=== PATIENT | male | born 1960 | race Caucasian/White ===

== ENCOUNTER → 2019-02-23 07:26 | Outpatient (CLI) | payer OTHER, SELFPAY ==
[2018-09-13 14:50] VITALS: BMI 24.9
[2019-02-23 08:26] LABS: AST(SGOT) 18 U/L (15-37); Alanine Aminotransfer ALT/SGPT 30 U/L (16-61); Albumin, Serum 3.6 g/dL (3.2-5.0); Alkaline Phosphatase 55 U/L (45-117); Bilirubin, Direct 0.17 mg/dL (0.00-0.30); Cholesterol 215 mg/dL (200); Globulin 3.5 g/dL (2.2-4.2); High Density Lipoprotein 66 mg/dL; PSA,Total - Annual Screen 0.85 ng/mL (0.00-4.00); Protein, Total 7.1 g/dL (6.4-8.2); Triglycerides 65 mg/dL; Very Low Density Lipoprotein 13 mg/dL (5-40)
== END ==
PROVIDERS: Internal Medicine Cardiovascular Disease; Family Provider Family Medicine; PCP Family Medicine; Referring Provider Family Medicine; Visit Provider Family Medicine
DX: Z12.5 Encounter for screening for malignant neoplasm of prostate (principal)
CPT/HCPCS: 36415; 80061; 80076; 84153; G0103

== ENCOUNTER → 2019-06-05 15:01 | Outpatient (CLI) | payer OTHER, SELFPAY ==
[2018-09-13 14:50] VITALS: BMI 24.9
--- NOTE | 2019-06-05 15:03 | ECHOD_ITS ---
Reason For Study: BICUSPID AORTIC VALVE Procedure This was a 2D Doppler, Color Flow transthoracic echocardiogram. The study was technically difficult. Exam performed in department. Left Ventricle Normal LV size. Mild concentric left ventricular hypertrophy. Left ventricular systolic function is normal. The estimated ejection fraction is 65 %. Post operative septal motion. No evidence for diastolic dysfunction. No regional wall motion abnormalities noted. Right Ventricle Normal RV size. Normal systolic function. Atria The left atrium is mildly enlarged. Normal right atrium. No doppler evidence for ASD. Mitral Valve There is no mitral annular calcification. Normal mitral valve. Trivial mitral valve insufficiency. Tricuspid Valve Normal tricuspid valve. Mild tricuspid valve insufficiency. Right ventricular systolic pressure estimated to be 31 mmHg. Aortic Valve Bicuspid aortic valve. Severe focal aortic valve calcification. Mild aortic stenosis. Mild-Moderate (1-2+) aortic valve insufficiency. Pulmonic Valve The pulmonic valve is not well visualized. Mild (1+) eccentric pulmonic valve insufficiency. Great Vessels Moderately dilated aortic root (at the level of the Sinus of Valsalva - approximately 4.8 cm). Pericardium/Pleural No pericardial effusion. MMode/2D Measurements & Calculations LVIDd: 5.7 cm IVSd: 1.4 cm LVOT diam: 3.0 cm LVIDs: 4.2 cm LVPWd: 1.4 cm LVOT area: 7.3 cm2 RVDd: 5.1 cm FS: 26.5 % LAV(MOD-bp): 55.9 ml Aortic Valve Planimetry: 2.3 cm2 LA A4 area: 19.2 cm2 LAV(MOD-bp) Indexed: 29.8 ml/m2 LAV(MOD-sp2): 57.6 ml LAV(MOD-sp4): 54.3 ml LA dimension(2D): 4.2 cm RA A4 area: 18.9 cm2 Time Measurements MV dec time: 0.23 sec Doppler Measurements & Calculations MV E max joseph: 52.5 cm/sec Lat Peak E' Joseph: 9.0 cm/sec Med Peak E' Joseph: 5.0 cm/sec MV A max joseph: 38.2 cm/sec E/E' lat: 5.9 E/E' med: 10.4 MV E/A: 1.4 Ao V2 max: 313.0 cm/sec LV V1 max: 84.8 cm/sec SV(LVOT): 160.2 ml Ao max P.4 mmHg LV V1 max P.9 mmHg Ao V2 mean: 222.4 cm/sec LV V1 mean P.7 mmHg Ao mean P.8 mmHg LV V1 mean: 61.4 cm/sec Ao V2 VTI: 70.7 cm LV V1 VTI: 22.0 cm JAMARI(I,D): 2.3 cm2 JAMARI(V,D): 2.0 cm2 PA V2 max: 88.4 cm/sec TR max joseph: 265.5 cm/sec TR max P.3 mmHg Interpretation Summary The study was technically difficult. Left ventricular systolic function is normal. The estimated ejection fraction is 65 %. Post operative septal motion. Mild concentric left ventricular hypertrophy. The left atrium is mildly enlarged. Trivial mitral valve insufficiency. Mild tricuspid valve insufficiency. Bicuspid aortic valve. Severe focal aortic valve calcification. Mild aortic stenosis. Mild-Moderate (1-2+) aortic valve insufficiency. Mild (1+) eccentric pulmonic valve insufficiency. Moderately dilated aortic root (at the level of the Sinus of Valsalva - approximately 4.8 cm). Right ventricular systolic pressure estimated to be 31 mmHg. No evidence for diastolic dysfunction. Ordering Physician: Gustavo Da Silva Referring Physician: Gregor Boykin Performed By: Carmen Calvo, RDCASH, RVT
== END ==
PROVIDERS: Family Provider Family Medicine; PCP Family Medicine; Referring Provider Internal Medicine Cardiovascular Disease; Visit Provider Internal Medicine Cardiovascular Disease
DX: Z95.828 Presence of other vascular implants and grafts (principal); Q23.1 Congenital insufficiency of aortic valve
CPT/HCPCS: 93306

== ENCOUNTER 2020-07-25 18:14 | Emergency (ER) | payer OTHER, SELFPAY ==
[2019-09-14 14:45] VITALS: BMI 24.3
[2020-07-25 18:15] VITALS: BP 145/100; PULSE 82; RESP 16; TEMP 35.9; O2SAT 98; BMI 25.8
[2020-07-25] MEDS: Glucagon 1 MG/ML Syringe IV (18:48)
[2020-07-25 18:59] VITALS: BP 98/59; PULSE 69; RESP 16; O2SAT 95
--- NOTE | 2020-07-25 19:16 | ED.RN ---
Pt sts he feels like the oill might have moved. Pt given a glass of water, able to drink cup without difficulty. Dr. Hernandez notified.
--- NOTE | 2020-07-25 19:17 | ED.DCSUM_ITS ---
- ER Visit Summary Date of Service: 07/25/20 Chief Complaint: Esophageal food impaction History of Present Illness: The patient is a 59 M who presents with esophageal food impaction that occurred today. Patient states he ate breakfast this morning which consisted of cereal. Patient states he had no problems with that. Patient states that later he took his pills. Patient states it feels like they got stuck in his esophagus. Patient states that he is having difficulty swallowing his saliva as well as any other liquids. Patient states he has been having some vomiting after he attempts to swallow liquids. Patient describes some aching in his chest whenever he drinks. Patient denies any shortness of breath. Patient denies any cough. Physical Examination: Vital signs are stable. Patient is afebrile. Patient is in no acute distress. Oral mucosa is pink and moist. Neck is supple. Trachea is midline. There is no JVD noted. Heart was regular rate and rhythm. Lungs are clear and equal bilaterally. Abdomen is soft. Bowel sounds are normal. There is no tenderness. There is no rebound or guarding noted. Skin is warm dry. Cranial nerves II through XII are intact. There are no focal motor or sensory deficits noted. Extremities are intact. There is no calf tenderness or edema. Emergency Department Course and Treatment: Patient was given a dose of IV glucagon. Initially, the patient states he had no improvement with this. However, a few minutes later he states he feels like something went down and he is now able to swallow water. Patient was instructed to start with a liquid diet and advance as tolerated. Patient was instructed to his food well. Patient was instructed to follow-up with his primary care physician in 3 to 5 days for further evaluation. Patient understood and was agreeable with the pl an. All questions were answered. Disposition: Discharge home Impression: Dysphagia This note was generated with [employer] dictation software. It may contain incorrect words, spelling, and punctuation that were not noted in review of the chart prior to signing ED Disposition - Plan for ED Patient: Disposition: Home or Assisted Living Diagnosis: Dysphagia Instructions: ED Esophageal Foreign Body, Resolved Referrals: Gregor Boykin MD [Primary Care Provider] - 3-5 Days
[2020-07-25 19:35] VITALS: BP 117/65; PULSE 67; RESP 16
== END 2020-07-25 19:35 | disposition home or self-care (01) ==
PROVIDERS: Emergency Provider Emergency Medicine; PCP Family Medicine
DX: R13.10 Dysphagia, unspecified (principal)
CPT/HCPCS: 96374; 99283; J1610

== ENCOUNTER 2020-11-06 05:57 | Day surgery (SDC) | payer OTHER, SELFPAY ==
[2020-09-26 12:44] VITALS: BMI 25.8
--- NOTE | 2020-10-31 08:55 | EKG12_ITS ---
Test Reason : PREOP Blood Pressure : / mmHG Vent. Rate : 053 BPM Atrial Rate : 053 BPM P-R Int : 160 ms QRS Dur : 100 ms QT Int : 422 ms P-R-T Axes : 034 -07 002 degrees QTc Int : 395 ms Sinus bradycardia Nonspecific ST abnormality Poor R wave progression Abnormal ECG Confirmed by SONIDO KRAMER, ERNESTINE ([id number]), market editor MICHEL JOHNSON ([id number]) on 11/04/2020 10:24:26 AM Referred By: VELVET Confirmed By:ERNESTINE HEAD MD
[2020-10-31 09:27] LABS: Hemoglobin 15.2 g/dL (13.0-16.5); Mean Corp Hgb Conc 32.3 g/dL (32-36); Mean Corpuscular Volume 92.9 fL (80-94); Mean Platelet Vol. 11.1 fl (6.2-12.0); Platelet Count 160 K/mm3 (150-450); RBC Distribution Width CV 12.4 % (11.6-14.6); RBC Distribution Width SD 42.6 fl (35.1-43.9); Red Blood Count 5.06 M/mm3 (4.6-6.2); White Blood Count 4.7 K/mm3 (4.4-11.0)
[2020-10-31 10:11] LABS: Anion Gap 3 (5-15); BUN 25 mg/dL (7-18); BUN/Creat Ratio 24.3 RATIO (10-20); Calcium,Total 9.3 mg/dL (8.5-10.1); Chloride 109 mmol/L (98-107); Creatinine, Serum 1.03 mg/dL (0.70-1.30); EST Glomerular Filtration Rate 78 mL/min (>60); Est Glom Filt Rate - Afr Amer 95 mL/min (>60); Glucose 106 mg/dL (74-106); Potassium 4.1 mmol/L (3.5-5.1); Sodium Level 141 mmol/L (136-145)
[2020-11-06] VITALS (10 sets, daily range): BP systolic 96–145; BP diastolic 45–77; PULSE 42–72; RESP 16–18; TEMP 36.1–37.1; O2SAT 94–100; BMI 24.7
--- NOTE | 2020-11-06 06:38 | PCM.HP.BLA ---
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 Tae Palomares MD) Cardiomyopathy Mixed hyperlipidemia Paroxysmal SVT (supraventricular tachycardia) Premature atrial contraction Premature ventricular contraction Surgical History History of aortic valve repair (~03/24/06) History of ascending aortic replacement (~03/24/06) History of cardiac radiofrequency ablation (~06/23/06) Family History Father Cancer Prostate Carotid artery stenosis Cardiac pacemaker in situ Mother Myocardial infarction Dementia Sister , age 50 Breast cancer Social History Smoking Status: Never smoker alcohol intake: current alcohol intake frequency: a few times a week Alcohol type: beer substance use type: does not use caffeine: Yes Type: coffee Number of servings: 2 HPI HPI HPI: KALEY GONZALEZ, is a 59 M who presents to the office today for HPI HPI Surgical H&P: Yes HPI: KALEY GONZALEZ, is a 59 M who presents to the office today for right groin bulging. The patient is noted he has had right groin bulging over the last few months. He is not having any pain in the opposite side. The patient also notes that he has an umbilical hernia. The patient is not having any radiation of pain or nausea or vomiting. ROS General General: No weight change or fatigue Cardio Cardiovascular: Yes murmur; No pacemaker, heart disease, atrial fibrillation, high blood pressure, heart attack, heart stent, palpitations, shortness of breat with exertion or chest pain Psych Psychiatric: No depression or anxiety Resp Respiratory: No shortness of breath, No sleep apnea, No cough, No COPD, No asthma, No emphysema and No wheezing Gastro Gastrointestinal: No abdominal pain, No nausea or vomiting, No diarrhea, No constipation, No blood in stool, No acid reflux, No hemorrhoids, No ulcers, No gallbladder problem and No black,tarry stools Additional Details: Bulging of the right groin Andres Hematologic: No blood thinners Exam Const General: cooperative Orientation: alert and oriented x3 Resp Effort & Inspection: normal respiratory effort Auscultation: clear to auscultation bilaterally Cardio Rate: regular rate Rhythm: regular rhythm Heart Sounds: murmur GI Inspection: non-distended Palpation: soft, hernia indirect inguinal on the right and umbilical and nontender Assessment and Plan Assessment and Plan (1) Right inguinal hernia: Status: Acute Plan - Dr. Tae Palomares MD: The patient has a right inguinal hernia which is reducible. There is bulging the right groin which is asymmetrical from the left. There is no pain or bulge in the left groin. The patient has an umbilical hernia as well. I discussed open versus laparoscopic repair of the right inguinal hernia with mesh. I discussed robotic assisted laparoscopic inguinal hernia repair with mesh. I discussed the risks including but not limited to bleeding, infection, injury to underlying organs, injury to spermatic cord, chronic groin pain. The patient understands the risks of the procedure and that mesh will be placed. The patient also agreed to proceed with contralateral inguinal hernia repair if it is present. At this time the patient does not want his umbilical hernia repaired Tae Palomares MD Pager: [facility] [address] [place] [address], [address] [place] [address] Office: I have seen and reexamined the patient and no changes
[2020-11-06] MEDS: Lactated Ringers 1,000 ML 100 ML IV ×2 (06:47→10:01)
[2020-11-06] MEDS: Cefazolin 2 GM in 0.9% Normal Saline 100 ML IV (07:24)
--- NOTE | 2020-11-06 07:30 | HERN_PTH ---
PATIENT: KALEY GONZALEZ LOC: [facility] [place] U#:[id number] AGE/SX: 59/M ROOM: RE11/06/[address]: Dr. Tae Palomares MD : 1960 BED: DIS: 11/06/2020 SPEC #: [id number] RECD: 11/06/20 11:50 STATUS: JOVITA REFarideh #: [id number] LOGAN: 11/06/20 07:[address]: Tae Palomares DEPT: SURGICAL PATHOLOGY RECD BY: Ariadne Harden ENTERED: 11/06/20 12:49 SP TYPE: Hernia OTHR DR: Dr. Gregor Boykin MD Tissues: HERNIA Procedures: Surgery Specimen Level II HEADER OPERATION: Robotic assisted laparoscopic inguinal hernia repair PRE-OP DIAGNOSIS: Right inguinal hernia TISSUE SUBMITTED: Hernia sac MICROSCOPIC DIAGNOSIS Hernia sac, herniorrhaphy: Mature fibrofatty tissue. AM:yasmani 11/07/2020 MICROSCOPIC DESCRIPTION Slides are reviewed. GROSS DESCRIPTION Received in fixative is one container labeled with the patient's name and designated hernia sac. The specimen consists of a piece of adipose tissue measuring 2.6 x 2.5 x 1.5 cm. Sections do not reveal any mass lesion. The specimen predominantly consists of yellow adipose tissue without area of hemorrhage, necrosis or cystic degeneration. Quality Associate sections are submitted in one cassette. / SJ:rg 11/06/20 TC:5 CPT: 53052
[2020-11-06] MEDS: Bupivacaine Mpf 0.5% 30 ML VIAL (09:11)
--- NOTE | 2020-11-06 09:58 | PCM.OPRPT ---
Problems Associated Problem List Diagnoses (1) Right inguinal hernia: Report of Operation Date of Procedure: 11/06/20 Pre-Operative Diagnosis: Right inguinal hernia Post-Operative Diagnosis: Bilateral inguinal hernia and umbilical hernia Surgery/Procedure Performed:: Robotic assisted laparoscopic bilateral inguinal hernia repair with mesh Specimen's removed: Umbilical hernia sac Description of Procedure: Patient was brought back to the operating room and general anesthesia was used. The abdomen was prepped and draped in usual sterile fashion. A midline incision was made over the umbilical hernia and the umbilical hernia sac was removed and the incarcerated preperitoneal fat was removed as well. The hernia was elongated by 5 mm to allow for the port to be placed. After the port was placed into the abdomen the abdomen was insufflated to 15 mmHg. Under direct visualization a right lateral and left lateral 8 mm port were placed. The patient was placed in Trendelenburg position and the robot was docked. The inguinal regions were inspected and the patient had an indirect and direct hernia on the right side and an indirect hernia on the left side. The decision was made to proceed with bilateral inguinal hernia repair with mesh. Using cautery scissors the right peritoneal region was incised and dissection was carried inferiorly until the hernia sac was reduced. Both hernia sacs were able to be reduced although there were several defects in the peritoneum. For this reason a large 3D max mesh was chosen and placed into the right inguinal region and sutured in place to the pubic tubercle using 2-0 Vicryl suture. There was good coverage of both hernia defects. The peritoneum was reapproximated using a running 3-0V lock suture. The defects in the peritoneum were closed with individual interrupted 3-0 Vicryl sutures. There is good coverage of the entire mesh at the end of the procedure. In the same fashion the left peritoneum was incised and dissection was carried inferiorly until the indirect hernia sac was dissected free and more posteriorly until there was a good amount of free area around the hernia. Next progrip mesh was placed in the left inguinal region and unfolded and placed over the hernia defect. The peritoneum was placed back over the mesh and sutured together using running 3 OV lock suture. There was good coverage of both meshes with peritoneum and they were both lying flat at the end of the case. The robot was undocked. The ports were removed and the umbilical hernia was closed with interrupted 0 Nurolon sutures. All of the skin incisions were injected with local anesthetic and closed with interrupted 4-0 Monocryl sutures and Steri-Strips and bandages. The scrotum was checked at the end the case and they both testicles. Patient was taken to PACU in stable condition. Grafts/Implants Used: Progrip mesh on the left inguinal region, large 3 DMax mesh in the right in Admit VTE Documentation VTE Mechan Device Prophylaxis: SCD's
--- NOTE | 2020-11-06 10:02 | EX.PCM.DISCH ---
Discharge Instructions Procedure Hernia (bilateral inguinal) Diet Discharge Diet: Light diet - advance as tolerated Activity Discharge Activity: May Not Drive (for 2-3 days or while taking narcotic pain meds.) and May Shower (with the bandage in place 1-2 days after surgery.) Lifting Restrictions: 20 pounds for 6 weeks. Additional Activity Instructions:: Climbing stairs is fine, walking is encouraged. Sitting in bed may be uncomfortable. Sitting up using your lateral muscles (sitting up sideways) is usually more comfortable. Do not drive, work heavy equipment of sign legal documents for 24 hours. If your hernia repair was an ingunial repair, you may have scrotal swelling, an ice pack and/or athletic support can provide more comfort. Pain medications may cause nausea, you should typically eat light foods as you take your pain medications. Pain medications may also cause constipation. If you have difficulty with this, discuss with your doctor. Dressing / Incision Call your doctor if your incision/area has: Continuous Slow Oozing, Sudden Increased Bleeding, Increased Pain/ Swelling, Increased Redness and Foul Smelling Discharge Call your doctor if you observe: Fever of 101 or Higher Suture Line Care: Avoid Pulling/Pushing and Avoid Pinching/Bending Remove Dressing in: 2 days Cleanse incision/area with: Soap & Water Follow Up Care Please Follow Up With: Tae Palomares MD When: Please call to schedule 2 week follow up appointment. [phone] Test Results: Test results from this visit will be discussed in further detail at your follow-up appointment, if applicable. Discharge Plan Admission Attending Provider: Tae Palomares Primary Care Provider: Gregor Boykin Discharge Orders/Prescriptions Prescriptions: New oxycodone-acetaminophen [Percocet] 5-325 mg tablet 1 tab PO Q6H PRN (Reason: pain) 3 Days Qty: 10 RF: 0 No Action multivitamin tablet 1 tab PO DAILY RF: 0 Adult Probiotic 3 billion cell capsule 3,000 mmu cells PO DAILY PRN (Reason: digestive) RF: 0 metoprolol succinate 50 mg tablet extended release 24 hr 50 mg PO DAILY Qty: 90 RF: 3 valsartan 80 mg tablet 80 mg PO DAILY Qty: 90 RF: 3 Referrals / Follow Up: Gregor Boykin MD [Primary Care Provider] - Disposition Disposition (needs filled in before D/C Order can be placed): Home, self care
[2020-11-06] MEDS: Acetaminophen 325 MG Tablet PO (11:00)
[2020-11-06] MEDS: oxyCODONE 5 MG Tablet PO (11:00)
== END 2020-11-06 14:57 | disposition home or self-care (01) ==
LOC: SDC 05:57 → AC 05:58
PROVIDERS: Anesthesiology; PCP Family Medicine; Referring Provider Surgery; Visit Provider Surgery
PROC: (CPT 49585; principal; 2020-11-06 07:10)
DX: K40.20 Bilateral inguinal hernia, without obstruction or gangrene, not specified as recurrent (principal); K42.9 Umbilical hernia without obstruction or gangrene; E78.2 Mixed hyperlipidemia
CPT/HCPCS: 00840; 49585; 49650; S2900; 36415; 80048; 85027; 87426; 88302; 93005; C9803; J7120; C1781; J2405

== ENCOUNTER → 2022-05-17 | Outpatient (CLI) | payer OTHER, SELFPAY ==
[2022-05-17 08:17] LABS: Absolute Lymphocyte Count 1.33 X10^3/uL (0.83-4.51); Absolute Neutrophil Count 2.2 X10^3/uL (2.0-7.7); Basophil# 0.03 X10^3/uL; Basophil% 0.7 % (0-1); Eosinophil# 0.17 X10^3/uL; Eosinophils% 4.1 % (0-5); Hematocrit 47.8 % (40-54); Hemoglobin 15.8 g/dL (13.0-16.5); Lymphocyte # 1.33 X10^3/ul (0.83-4.51); Lymphocyte % 31.7 % (19-41); Mean Corp Hgb Conc 33.1 g/dL (32-36); Mean Corpuscular Hgb 30.7 pg (27.0-32.0); Mean Corpuscular Volume 92.8 fL (80-94); Mean Platelet Vol. 11.1 fl (6.2-12.0); Monocyte# 0.44 X10^3/uL; Monocyte% 10.5 % (0-10); NRBC Flagged by Analyzer 0 % (0-5); Neutrophil # 2.21 X10^3/uL (2.7-7.7); Neutrophil % 52.8 % (47-70); Platelet Count 153 K/mm3 (150-450); RBC Distribution Width CV 12.4 % (11.6-14.6); RBC Distribution Width SD 42.7 fl (35.1-43.9); Red Blood Count 5.15 M/mm3 (4.6-6.2); White Blood Count 4.2 K/mm3 (4.4-11.0)
[2022-05-17 08:52] LABS: ALB/GLOB Ratio 1.1 RATIO (0.9-2.4); AST(SGOT) 25 U/L (15-37); Alanine Aminotransfer ALT/SGPT 31 U/L (16-61); Albumin, Serum 3.6 g/dL (3.2-5.0); Alkaline Phosphatase 54 U/L (45-117); Anion Gap 2 (5-15); BUN 22 mg/dL (7-18); BUN/Creat Ratio 18.6 RATIO (10-20); Calcium,Total 8.7 mg/dL (8.5-10.1); Chloride 109 mmol/L (98-107); Cholesterol 225 mg/dL (200); Creatinine, Serum 1.18 mg/dL (0.70-1.30); EST Glomerular Filtration Rate 66 mL/min (>60); Est Glom Filt Rate - Afr Amer 80 mL/min (>60); Globulin 3.4 g/dL (2.2-4.2); Glucose 110 mg/dL (74-106); High Density Lipoprotein 61 mg/dL; Potassium 4.1 mmol/L (3.5-5.1); Sodium Level 141 mmol/L (136-145); Triglycerides 76 mg/dL; Very Low Density Lipoprotein 15 mg/dL (5-40)
== END | disposition home or self-care (01) ==
PROVIDERS: PCP Family Medicine; Referring Provider Family Medicine; Visit Provider Family Medicine
DX: Z00.00 Encounter for general adult medical examination without abnormal findings (principal); Z80.42 Family history of malignant neoplasm of prostate; I10 Essential (primary) hypertension
CPT/HCPCS: 36415; 80053; 80061; 84153; 85025; G0103

== ENCOUNTER 2022-07-27 08:29 | Day surgery (SDC) | payer OTHER, SELFPAY ==
[2022-07-27] VITALS (8 sets, daily range): BP systolic 83–148; BP diastolic 49–57; PULSE 62–86; RESP 16–18; TEMP 36.3–36.5; O2SAT 91–98; BMI 25.4
[2022-07-27] MEDS: Lactated Ringers 1,000 ML 15 ML IV (08:35)
--- NOTE | 2022-07-27 09:07 | HP.PCM_ITS ---
History and Physical Date of Admission: 07/27/22 Intake Vital Signs ? 11/06/2105:48 06/25/2313:23 Height 5 ft 8 in ? Blood Pressure Location ? Rt brachial Position ? Sitting Respiration ? 17 Pulse ? 48 L Pulse Source ? Monitor Temp ? 97.1 F L Temp Source ? Temporal Pulse Oximetry (%) ? 94 Oxygen Delivery Method ? room air Intake Visit Reasons:?COLONOSCOPY Chief Complaint: colonoscopy Allergies lisinopril Adverse Reaction (Severe, Verified 06/25/22 14:32) Cough Medications multivitamin 1 tab PO DAILY 09/13/18 [History Confirmed 06/25/22] lactobacillus combination no.8 3 billion cell capsule (Adult Probiotic) 3,000 mmu cells PO DAILY PRN digestive 09/14/19 [History Confirmed 06/25/22] metoprolol succinate 50 mg tablet,extended release 24 hr 50 mg PO DAILY #90 tabs 12/25/20 [Rx Confirmed 06/25/22] valsartan 80 mg tablet 80 mg PO DAILY #90 tabs 12/25/20 [Rx Confirmed 06/25/22] PFSH Medical History?(Updated 06/25/22 @ 14:22 by Keri Mccarty) Alcohol use Cardiology follow-up encounter Cardiomyopathy Difficulty swallowing Heartburn History of irregular heartbeat Hx of echocardiogram Hx of psoriasis Mixed hyperlipidemia Non-smoker Paroxysmal SVT (supraventricular tachycardia) Premature atrial contraction Premature ventricular contraction Wears hearing aid Surgical History? H/O bilateral inguinal hernia repair History of aortic valve repair (~03/24/06) History of ascending aortic replacement (~03/24/06) History of cardiac catheterization History of cardiac radiofrequency ablation (~06/23/06) Family History? Father?? Cancer ?? ? Prostate Carotid artery stenosis Cardiac pacemaker in situMother?? Myocardial infarction DementiaSister?? ,? age 50 Breast cancer Social History?(Updated 06/25/22 @ 14:23 by Keri Mccarty) Smoking Status:? Never smoker alcohol intake:? current alcohol intake frequency: a few times a week Alcohol type: beer substance use type:? does not use caffeine:? Yes Type: coffee Number of servings: 2 HPI HPI HPI: Patient is a 61-year-old male here for screening colonoscopy.? He has never had a colonoscopy in the past.? He denies abdominal pain or blood in stool.? He has no family history of colon cancer.? He is not on blood thinners. ROS General General: No weight change, appetite, fatigue, colon cancer, breast cancer or weakness HEENT HEENT: No difficulty swallowing, eye injury, eye surgery, swollen glands or hoarseness Endo Endocrine: No thyroid disease, diabetes mellitus, thyroid cancer, Hair loss, heat intolerance or cold intolerance Skin Skin: Yes rash; No changing moles Musc Musculoskeletal: No back problems, arthritis, rheumatoid arthritis, gout or joint pain Cardio Cardiovascular: Yes murmur, heart disease and high blood pressure; No pacemaker, atrial fibrillation, heart attack, heart stent, palpitations, shortness of breat with exertion or chest pain Psych Psychiatric: No depression, anxiety or hearing voices Resp Respiratory: No shortness of breath, No sleep apnea, No cough, No COPD, No asthma, No emphysema and No wheezing Gastro Gastrointestinal: No abdominal pain, No nausea or vomiting, No diarrhea, No constipation, No blood in stool, Yes acid reflux, No hemorrhoids, No ulcers, No gallbladder problem and No black,tarry stools Andres Hematologic: No blood thinners, No blood disorders, No bleeding, No anemia and No blood clots Neuro Neurologic: No system reviewed and no additional complaints, except as documented, No as per HPI, No abnormal gait, No abnormal hearing, No abnormal movements, No abnormal speech, No behavioral changes, No burning sensations, No confusion, No convulsions, No disequilibrium, No dizziness, No localized weakness, No frequent falls, No headache(s), No lack of coordination, No loss of vision, No memory loss, No numbness, No other visual disturbances, No radicular pain, No restless legs, No sensory deficit, No syncope, No tingling, No tremor(s), No weakness and No other Exam Const General: cooperative Orientation: alert and oriented x3 [facility] Head: normal to inspection Neck Neck: normal visual inspection and full ROM Chest Chest palpation & inspection: normal inspection of the chest Resp Effort & Inspection: normal respiratory effort Auscultation: clear to auscultation bilaterally Cardio Rate: regular rate Rhythm: regular rhythm GI Inspection: non-distended Palpation: soft and nontender Skin General: no rashes or lesions noted Neuro General: patient alert and patient oriented x3 Extrem General: full ROM Psych Appearance: grossly normal Mental Status: mental status grossly normal Assessment and Plan Assessment and Plan (1) Screening for malignant neoplasm of colon: ?Status:?Acute ?Plan: Plan for screening colonoscopy.? I explained endoscopy in detail to the patient.? I explained the risks including but not limited to stroke or heart attack with anesthesia, perforation of the GI tract, bleeding, infection.? I explained that any of these could necessitate further emergency surgery.? The patient understands and all questions were answered sufficiently.? The patient wishes to proceed with procedure. Tae Palomares MD Pager: [facility] [address] [place] [address], [address] [place] [address] Office: I have examined the patient and the H&P has been reviewed. There are no clinical changes since date of exam.
--- NOTE | 2022-07-27 09:32 | OP.COLON_ITS ---
Patient Name: Carson Mari Procedure Date: 07/27/2022 9:14 AM Date of : 1960 Age: 61 Procedure: Colonoscopy Indications: Screening for colorectal malignant neoplasm Providers: aTe Palomares MD Referring MD: Tae Palomares MD Medicines: Monitored Anesthesia Care Patient Profile: This is a 61 year old male. Refer to note in patient chart for documentation of history and physical. Last Colonoscopy: none. The patient's first colonoscopy is today. Complications: No immediate complications. Procedure: Pre-Anesthesia Assessment: - Prior to the procedure, a History and Physical was performed, and patient medications and allergies were reviewed. The patient's tolerance of previous anesthesia was also reviewed. The risks and benefits of the procedure and the sedation options and risks were discussed with the patient. All questions were answered, and informed consent was obtained. Prior Anticoagulants: The patient has taken no previous anticoagulant or antiplatelet agents. After reviewing the risks and benefits, the patient was deemed in satisfactory condition to undergo the procedure. After I obtained informed consent, the scope was passed under direct vision. Throughout the procedure, the patient's blood pressure, pulse, and oxygen saturations were monitored continuously. The pediatric colonoscope was introduced through the anus and advanced to the cecum, identified by appendiceal orifice and ileocecal valve. The colonoscopy was performed without difficulty. The patient tolerated the procedure well. The quality of the bowel preparation was good. Scope In: 9:18:07 AM Scope Withdrawal Time 0 hours 7 minutes 49 seconds Scope Out: 9:30:27 AM Total Procedure Duration Time 0 hours 12 minutes 20 seconds Findings: The entire examined colon appeared normal on direct and retroflexion views. Impression: - The entire examined colon is normal on direct and retroflexion views. - No specimens collected. Recommendation: - Discharge patient to home. - Resume previous diet. - Continue present medications. - Repeat colonoscopy in 10 years for screening purposes. Procedure Code(s): --- Professional --- 41389, Colonoscopy, flexible; diagnostic, including collection of specimen(s) by brushing or washing, when performed (separate procedure) Diagnosis Code(s): --- Professional --- Z12.11, Encounter for screening for malignant neoplasm of colon CPT copyright 2017 [employer]. All rights reserved. The codes documented in this report are preliminary and upon converter operator review may be revised to meet current compliance requirements. Tae Palomares MD 07/27/2022 9:32:32 AM This report has been signed electronically. Number of Addenda: 0 Note Initiated On: 07/27/2022 9:14 AM
--- NOTE | 2022-07-27 09:33 | OP.CCLET_ITS ---
07/27/2022 Shara Husain [place] [id number] [address] Re : Colonoscopy procedure for Carson Mari Dear Dr. Husain This procedure was performed on Wednesday, July 27, 2022. My impressions and recommendations are as follows: Impressions : - The entire examined colon is normal on direct and retroflexion views. - No specimens collected. Recommendations : - Discharge patient to home. - Resume previous diet. - Continue present medications. - Repeat colonoscopy in 10 years for screening purposes. My findings are described in the full procedure note, which is enclosed. If I can be of further assistance, please feel free to contact me at Doctor phone number(s): , Work: . Sincerely, Tae Palomares MD 07/27/2022 9:32:32 AM This report has been signed electronically.
== END 2022-07-27 10:40 | disposition home or self-care (01) ==
LOC: EN 08:29 → AC 08:31
PROVIDERS: PCP Family Medicine; Referring Provider Family Medicine; Visit Provider Surgery
PROC: 0DJD8ZZ Inspection of Lower Intestinal Tract, Via Natural or Artificial Opening Endoscopic (ICD-10-PCS; CPT 45378; principal; 2022-07-27 09:25)
DX: Z12.11 Encounter for screening for malignant neoplasm of colon (principal); I10 Essential (primary) hypertension; Z79.899 Other long term (current) drug therapy
CPT/HCPCS: 45378; J7120; J2405

== ENCOUNTER → 2022-09-16 | Outpatient (CLI) | payer SELFPAY | END | disposition home or self-care (01) | PROVIDERS: PCP Family Medicine; Referring Provider Family Medicine; Visit Provider Family Medicine | DX: I25.10 Atherosclerotic heart disease of native coronary artery without angina pectoris (principal) ==

== ENCOUNTER → 2024-07-04 | Outpatient (CLI) | payer OTHER, SELFPAY ==
--- NOTE | 2024-07-04 11:55 | RAD_ITS ---
EXAM: XR Chest, 2 Views CLINICAL INDICATION: TECHNIQUE: Frontal and lateral views of the chest. COMPARISON: No relevant prior studies available. FINDINGS: LUNGS AND PLEURAL SPACES: Unremarkable. No consolidation. No pneumothorax. HEART: Unremarkable. No cardiomegaly. MEDIASTINUM: Unremarkable. Normal mediastinal contour. BONES/JOINTS: Unremarkable. No acute fracture. RAD/Chest PA and Lateral IMPRESSION: No acute cardiopulmonary process. Reading [facility]
== END | disposition home or self-care (01) ==
PROVIDERS: PCP Family Medicine; Referring Provider Otolaryngology; Visit Provider Otolaryngology
DX: R05.9 Cough, unspecified (principal)
CPT/HCPCS: 71046

== ENCOUNTER → 2024-07-05 | Outpatient (CLI) | payer OTHER, SELFPAY | END | disposition home or self-care (01) | LOC: LABSPEC 12:34 | PROVIDERS: PCP Family Medicine; Referring Provider Otolaryngology; Visit Provider Otolaryngology | DX: R05.9 Cough, unspecified (principal) | CPT/HCPCS: 87070; 87205 ==

== ENCOUNTER → 2025-02-05 | Outpatient (CLI) | payer OTHER, SELFPAY ==
--- NOTE | 2025-02-05 12:59 | CR.HP_ITS ---
CR - History & Physical General Arrival date:: 02/05/25 Arrival time:: 12:59 Date of Referral:: 01/18/25 Date of CR Evaluation:: 02/05/25 Referring Physician: Shara Savage Primary Diagnosis: Aortic Valve Replacement History of Present Cardiac Event Onset Date Heart valve replacement or repair:: Yes (12/11/2024) Medications Ambulatory Orders ?Medication ?Instructions ?Recorded multivitamin 1 tab PO DAILY 09/13/18 lactobacillus combination no.8 3 3,000 mmu cells PO DA SHAVONNE PRN 09/14/19 billion cell capsule (Adult digestive Probiotic) metoprolol succinate 50 mg 50 mg PO DAILY #90 tabs tablet,extended release 24 hr valsartan 80 mg tablet 80 mg PO DAILY #90 tabs 11/28 02/17 Allergies Allergies lisinopril Adverse Reaction (Severe, Verified 07/22/22 10:41) Cough Sleep Disorder Evaluation Hx of Sleep Apnea: No Do you snore loudly (louder than talking or can be heard through closed doors)?: No Do you often feel tired/ fatigued/ sleepy during daytime?: No Has anyone observed you stop breathing during sleep?: No History of Hypertension (for STOP score): Yes STOP Results: Negative Advanced Directives Advanced Directives Do you have a Healthcare Power of Fringe Knotter?: Yes Living Will: Yes Advance Directives Information Provided: Yes Advance Directives on File: No DNR Order?:: No Past Medical History Covid-19 Screening Physicial Symptoms Other Clinical Concerns Exposure Risk Pertinent Comorbidities 65 years or older:: Yes Has a serious heart condition:: Yes Past Medical Illness Past Medical History (Updated 07/22/22 @ 10:53 by Christy Denise) Hypertension I10 CONTROLLED ON MED Wears hearing aid Z97.4 Alcohol use Z72.89 occ Hx of psoriasis Z87.2 Difficulty swallowing R13.10 can not swallow large pills Heartburn R12 occ Non-smoker Z78.9 Hx of echocardiogram Z92.89 2019 Cardiology follow-up encounter Z09 follows with [facility] last visit 2019 History of irregular heartbeat Z86.79 hx of svt Mixed hyperlipidemia E78.2 Premature ventricular contraction I49.3 Premature atrial contraction I49.1 Paroxysmal SVT (supraventricular tachycardia) I47.1 Cardiomyopathy I42.9 Past Surgical History Past Surgical History H/O bilateral inguinal hernia repair Z98.890, Z87.19 Robotic asissted- 11/06/20 History of cardiac catheterization Z98.890 2006 History of cardiac radiofrequency ablation (~06/23/06) Z98.890 SVT History of ascending aortic replacement (~03/24/06) Z95.828 30mm [place] graft History of aortic valve repair (~03/24/06) Z98.890, Z86.79 Family History Summary Family History Father Cancer Prostate Carotid artery stenosis Cardiac pacemaker in situ Mother Myocardial infarction Dementia Sister , age 50 Breast cancer Social History Alcohol Use Alcohol Usage: Yes (ocassionaly) Substance Abuse Hx Substance Use: No Occupation Occupation (List type of work in comments):: Employed Hours worked per day:: 4 Social Environment Status Marital Status: Current Living Arrangements Living Environment:: Spouse Children How many children do you have?: 3 Do any of your children live nearby?: Yes Safety Do you feel safe in your surroundings?: Yes Assistance Do you need any assistance at home?: no Review of Systems Review of Systems Hints Review of Present Symptoms: Reports Appetite - Normal, Appetite - Special Diet and Sleep - Normal; Denies Shortness of Breath at Rest, Shortness of Breath with Exertion, PVD, Operative Discomfort, Angina, Wound Healing, Dizziness/Lightheadedness, Fatigue, Heart Arrhythmia/Irregularities or Sexual Changes Pain Is Patient Pain Free?: Yes Risk Factor Assessment Chief Complaint Chief Complaint: Heart Valve Replacement Vital Signs Pulse Ox: 98 Blood Pressure: 120/72 Pulse Pulse Rate: 74 Hypertension Blood Pressure Sitting - Right Arm: 120/72 Obesity Height: 5 ft 8 in Weight:: 144 lb Weight in Pounds: 144.0 lbs Body Mass Index (BMI): 21.9 Nutritional Referral for Obesity: No Physical Inactivity Physical Inactivity: Reg Exercise 30 min/day Risk Stratification Risk Guidelines: Moderate Risk: Risk Factor for Smoking, Risk Factor for Diabetes, Risk Factor for Obesity, Risk Factor for Sedentary Lifestyle and Risk Factor for Depression and Highest Risk: Risk Factor for Hypertension For Smoking Smoking Risk Guidelines For Dyslipidemia Dyslipidemia Risk Guidelines For Diabetes Mellitus Diabetes Risk Guidelines For Obesity/Overweight Obesity/Overweight Risk Guidelines For Hypertension Hypertension Risk Guidelines For Sedentary Lifestyle Sedentary Lifestyle Risk Guidelines For Depression Depression Risk Guidelines Family History Family History Father Cancer Carotid artery stenosis Cardiac pacemaker in situ Mother Myocardial infarction Dementia Sister Breast cancer Motivation Motivation to Participate On a scale of 1 to 10, how prepared are you to commit to attending program?: 9 What do you see as barriers to successfully being able to complete the program?: nothing What do you see as the benefits of succesfully completing the program? In other words, what do you hope to get out of participating in the program?: improve strength and endurance Are there issues you are dealing with that will interfere with completing the program?: no Do you have a spouse or signficant other, family or friends who will help support you to complete the program?: yes
[2025-02-05 13:15] VITALS: BP 120/72; PULSE 74; O2SAT 98
--- NOTE | 2025-02-05 13:52 | PCM.CR.ITP ---
Diagnosis General Information Admitting Diagnosis: Aortic Valve Replacement Personal Learning Style:: Audio/Visual Barriers to Learning: Cognitive/Learning Impairment, Cultural/Spiritual, Decreased Motivation, Emotional/Anxiety, Hearing Impairment, Language, Low Literacy, Mental Status, No Barriers, Physical Condition/Sensory Deficit and Vision Impairment Stage of change r/t lifestyle modifications:: Contemplation Gave educational material for:: Treating Heart Disease, How The Heart Works, What it means to have Heart Disease, How Coronary Artery Disease is Diagnosed, Heart Procedures, What Heart Medications Do, Risk Factors & Modifications, Living an Active Life, Nutrition, Emotions & Heart Disease, Stress Management & Relaxation and Sleep Disorders & Heart Disease Education/Goals Cardiac Rehabilitation Goals Personal Goals: Initial Assessment: Participate in home exercise program, Get back to work, or to resume activities faster and Improve muscle strength and endurance Scale for measuring improvement of personal goals Diagnosis & Disease Process Outcomes/Goals: Pt IDs own risk factors & lifestyle modifications by Session 10, Verbalizes symptoms of angina & response by session 3., Pt independently manages and Other Additional Outcomes/Goals: Plan/Interventions: Assist Pt to ID & engage in lifestyle modification to reduce CVD risk, Instruct on individual risk factors, Review symptoms of angina & emergency actions, Review secondary diagnosis & identify educational needs. and Other see comment 30 day Reassessments:: Not Met 30 day Reassessments:: Not Met 30 day Reassessments:: Not Met 30 day Reassessments:: Not Met Final Reassessments:: Not Met Safety Referral to Physical Therapy: No Referral to [facility] Case Management: No Fall Risk Assessed:: Yes Assistive Devices:: None Exercise - Initial Assessment Visit Date of Eval: 02/05/25 (initial eval ) Mets: Pre-: >3 METS for 30 minutes by discharge, >5 METS for 30 minutes by discharge, >7 METS for 30 minutes by discharge and Unable to meet goal due to: (see comment below) Physician Prescribed Exercise Modalities: Treadmill, [employer]ird[employer] AD-7, SciFit Stepper, SciFit Pro-II Ergometer and SciFit Lateral [place] Frequency: 3x/week for 12 weeks [36 sessions] Intensity: 60-80% of age predicted maximum heart rate reserve Duration: 30 - 45 minutes Current METSs:: 3 Target Heart Rate:: 101-116 Resting Blood Pressure: 120/72 EKG Type: AV paced biventricular pacemaker Outcomes & Goals Goals:: Verbalizes understanding of THR, RPE & goal METS by session 6, Documents in home exercise log/reports 30 min aerobic 5 day/wk by DC, Demonstrates accurate pulse taking by DC and Other additional outcome/goals: see below Intervention & Plan Exercise Program Goals: Instruct on personal THR & RPE, Instruct on MET level & personal MET goal, Show patient to take own pulse /validate performance until accurate, Instruct on home exercise and Other additional plan/int Physical Activity Home Exercise Physical Activity - Home Exercise: Safe Exercise, Warm-up, Self-monitoring, Cool-Down, Home Exercise > 30 min Daily and Sitting Time <3 hours/daily Outcomes & Goals Outcomes/Goals: Demonstrates correct Warm-up/exercise Cool-Down (S3) if = 2.5 METs, Verbalizes symptoms of exercise intolerance by Session 3 (S3), Demonstrate safe equipment use (S3) & follows exercise prescrition (6) and Other: See below Intervention & Plan Plan/Intervention: Instruct warm-up & cool-down if exercising at > 2 METs, Instruct on symptoms of exercise intolerance & actions to take, Instruct & monitor on saf, Assess intial functional capacity & safety risk and Other See below Nutrition - Initial Assessment Program Goals Nutrition Program Goals Patient has diagnosis of Hyperlipidemia (ICD E78)?: Yes Visit Date of Eval: 02/05/25 (initial eval) Cholesterol/Lipids (Other Core Measures) Determine presence & major risk factors that modify LDL goal: Cigarette smoking, Hypertension or hypertensive medication, Low HDL cholesterol <40 mg/dL*, Family history of premature CHD in Male < 55 years: female <65 yearsFa and Age men > 45 years; women >/= 55 years Outcomes/Goals: Pt IDs own risk factors & lifestyle modifications by Session 10, Verbalizes symptoms of angina & response by session 3., Pt independently manages and Other Additional Outcomes/Goals: Intervention/Plan: Advocate for lipid panel cholesterol medication if applicable, Instruct on personal lipid levels & lipid goals/NCEP guidelines, Instruct on cholesterol and Other additional plan/int Referral to dietitian:: No (Nutrition score of 4. Pt declines seeing eligibility counselor.) Diabetes (Other Core Measures) Diabetes Type: Not Applicable Weight Mgt (Other Care) Height: 5 ft 8 in Weight:: 144 lb BMI: 21.9 Diagnosis Overweight/Obesity BMI> 30% ICD-10 E66: No Diagnosis High BMI/Morbid Obesity BMI> 35% ICD-10 Z68: No Outcomes/Goals: Pt sets, maintains & shows weight loss goal & trend during rehab and Other additional outcomes/goals Intervention/Plan: Instruct on ideal BMI & set weight loss goal w/patient, Assist pt to ID & incorporate diet changes for weight loss by S9, Refer to Structured Weight Loss program as appropriate, Encourage goal of using 250-300dcal per session for weight loss and Other additional plan/interventions Healthy Eating Habits Will attend diet classes:: Yes Outcomes/Goals:: Consume diet rich in vegs,fruits,whole grain/high fiber,fish,lean meat, Limit sat/trans fats,cholesterol & added salts & sugars and Other additional outcome/goals: Intervention/Plan:: Assess current eating habits and Other Additional plan/interventions Education Gave educational materials for:: Signs & symptoms of hypoglycemia, Signs & symptoms of hyperglycemia, Relate diabetes to coronary artery disease and Healthy eating Core - Initial Assessment Visit Date of Eval: 02/05/25 (initial eval ) Medication Compliance Preventative Medication(s):: Aspirin, Beta chan and Eliquis H/O mental health issues: depression, anxiety, or addiction?: No Doesn?t believe in the benefits of treatment?: No Believes medications are unnecessary or harmful?: No Has a concern about medication side effects?: No Expresses concern over the cost of medications?: No Outcomes/Goals: Verbalizes medications,desired effect & common side effects @ DC, Pt self-reports following medication regimen, Keeps card in wallet w/medications listed by DC and Other additional outcome/goals: Interventions/plans: Instruct on medication effects & side effects, Review medication list w/patient every two weeks, Instruct importance of taking meds as ordered & assist problem solving and Other additional Tobacco Use Tobacco Use: Non-smoker Hypertension Hypertension Diagnosis:: Hypertension ICD-10 I10 Resting Blood Pressure:: 120/72 [place] [employer] Hypertension Guidelines Outcomes/Goals: Able to verbalize/achieve optimal blood pressure <130/80, Incorporates diet changes & exercise for blood pressure control by DC and Other additional outcomes/goals Interventions/plan: Instruct on optimal blood pressure, hypertension & medications, Instruct on effects of sodium, alcohol, stress, exercise &hypertension and Other additional plan/interventions Tobacco Cessation Referral Smoking Cessation Referral:: No Individual Education/Counseling:: No Education Schedule Given:: Yes Psychosocial - Initial Assess VIsit Date of Eval: 02/05/25 (initial eval) History of previous Mental disease:: No Psychosocial Test Tool Used:: PHQ-9 Questionnaire phq-9 Severity See PHQ-9 Score: 0 Referral to Behavioral Health PS - Interventions: Yes: Attend Stress Management Classes Outcomes/Goals: See list Psychosocial Outcomes/Goals:: ID's personal stressors & 2 strategies to manage stress by discharge and Other Additional outcome/goals: Intervention/Plan: See List Interventions/Plan:: Assess stressors,coping strategies & signs of derpression on admission, Instruct/assist pt to develop coping & personal stress Mgt strategies, Refer to Behavioral Health if appropriate, Refer to Physician if appropriate, Instruct patient to recognize signs & symptoms of depression, Instruct patient to recog and Other additional plan/intervention Comments:: Pt denies any psychosocial issues at this time. Patient Health Questionnaire PHQ-9 Screening Initial Assessment: 1. Little interest or pleasure in doing things: Not at all 2. Feeling down, depressed, or hopeless: Not at all 3. Trouble falling or staying asleep, or sleeping too much: Not at all 4. Feeling tired or having little energy: Not at all 5. Poor appetite or overeating: Not at all 6. Feeling bad about yourself -- or that you are a failure or have let yourself or your family down: Not at all 7. Trouble concentrating on things, such as reading the newspaper or watching television: Not at all 8. Moving or speaking so slowly that other people could have noticed. Or the opposite - being so fidgety or restless that you have been moving around a lot more than usual: Not at all 9. Thoughts that you would be better off , or of hurting yourself in some way: Not at all How difficult have these problems made it for you to do your work, take care of things at home, or get along with other people?: Not difficult at all Total Score: 0 JEFRY-Q SV Test Statements CAD is a disease of the arteries in the heart: False Examples of risk factors for heart disease: True Angina is chest pain or discomfort: True The benefits of resistance training include: True Eating more meat and dairy products: False Anti-platelet medications such as aspirin are important: I Don't Know The only effective way to manage stress: False An exercise warm-up slowly increases heart rate: I Don't Know Prepared, processed foods usually have high sodium: True Depression is common after a heart attack: True The statin medications lower cholesterol: True To control blood pressure, lower the amount of sodium: True If someone gets chest discomfort during walking: False Transfats are partially hydrogenated vegetable oils: True Sleep apnea that is not treated increases the risk: False To control cholesterol, one should become a vegetarian: False Someone knows if he/she is exercising at the right level: I Don't Know Diabetes cannot be prevented with exercise & health eating: False Stress is a large risk for heart attack: True A diet that can help lower blood pressure is rich in: True Total Score Total Correct Responses: 17 Self-Efficacy 6-Item Scale Initial Assessment: We would like to know how confident you are in doing certain activities. Please select your confidence level for: Fatigue Select Number: 8 Physical Discomfort or Pain Select Number: 9 Emotional Distress Select Number: 10 Other Symptoms or Health Problems Select Number: 9 Different Tasks and Activities Select Number: 8 Medication Select Number: 9 Total Score:: 8 Nutrition Survey Nutrition Survey Initial: Have you lost >10 lbs over the past 2 months without trying?: Yes Are you following a special diet at home for diabetes, low fat, or low salt?: Yes Are you interested in meeting with a dietitian for help understanding your diet?: No Do you eat less than 3 meals a day?: No Do you eat fatty meats (samuel, sausage, ribs, etc), fried foods, desserts, large amounts of salad dressings, margarine, butter, or cheese most days?: No Do you have food allergies? [Enter types in comment field]: Yes Do you eat in restaurants more than 3 times a week?: No Do you season food with salt, seasoning salt, or garlic salt?: No Do you used canned, boxed, frozen meals, or soups, seasoning packets?: Yes Total Score:: 4 Exercise - 30-day Assessment Physician Prescribed Exercise Modalities: Treadmill, Carlos Gayel AD-7, SciFit Stepper, SciFit Pro-II Ergometer and SciFit Lateral Criminal Defense Lawyer Exercise - 60-day Assessment Physician Prescribed Exercise Modalities: Treadmill, Carlos Gayle AD-7, SciFit Stepper, SciFit Pro-II Ergometer and SciFit Lateral [place] Exercise - 90-day Assessment Physician Prescribed Exercise Modalities: Treadmill, [employer] A[employer] AD-7, SciFit Stepper, SciFit Pro-II Ergometer and SciFit Lateral [place] Exercise - Final/Discharge Physician Prescribed Exercise Modalities: Treadmill, [employer] Aird[employer] AD-7, SciFit Stepper, SciFit Pro-II Ergometer and SciFit Lateral [place] Frequency: 3x/week for 12 weeks [36 sessions] Intensity: 60-80% of age predicted maximum heart rate reserve Current METSs:: 3 Target Heart Rate:: 101-116 Nutrition - 30-Day Assessment Weight Mgt (Other Care) Height: 5 ft 8 in Weight:: 144 lb BMI: 21.9 Nutrition - 60-Day Assessment Weight Mgt (Other Care) Height: 5 ft 8 in Weight:: 144 lb BMI: 21.9 Core - Final Assessment Hypertension Resting Blood Pressure:: 120/72 [place] [employer] Hypertension Guidelines Core - 60-Day Assessment Hypertension Resting Blood Pressure:: 120/72 [place] [employer] Hypertension Guidelines Psychosocial - 30-Day Assess Referral to Behavioral Health PS - Interventions: Yes: Attend Stress Management Classes Psychosocial - 60-Day Assess Referral to Behavioral Health PS - Interventions: Yes: Attend Stress Management Classes Psychosocial - 90-Day Assess Referral to Behavioral Health PS - Interventions: Yes: Attend Stress Management Classes Psychosocial - Final Assessmen Psychosocial Test phq-9 Severity See PHQ-9 Score: 0 Referral to Behavioral Health PS - Interventions: Yes: Attend Stress Management Classes Nutrition - 90-Day Assessment Weight Mgt (Other Care) Height: 5 ft 8 in Weight:: 144 lb BMI: 21.9 Nutrition - Final Assessment Program Goals Patient has diagnosis of Hyperlipidemia (ICD E78)?: Yes Weight Mgt (Other Care) Height: 5 ft 8 in Weight:: 144 lb BMI: 21.9
[2025-02-05 14:02] VITALS: BP 120/72; BMI 21.9
== END | disposition home or self-care (01) ==
PROVIDERS: PCP Family Medicine; Referring Provider Family Medicine; Visit Provider Family Medicine
DX: Z95.4 Presence of other heart-valve replacement (principal); I50.9 Heart failure, unspecified

== ENCOUNTER 2025-02-25 13:00 | Outpatient (RCR) | payer MEDICARE, MEDICAID, SELFPAY ==
[2025-02-05 14:02] VITALS: BMI 21.9
== END 2025-02-26 23:59 ==
LOC: CR 13:00
PROVIDERS: PCP Family Medicine; Referring Provider Family Medicine; Visit Provider Family Medicine
DX: I50.9 Heart failure, unspecified (principal); Z95.4 Presence of other heart-valve replacement
CPT/HCPCS: 93798

== ENCOUNTER 2025-02-27 10:08 | Outpatient (RCR) | payer MEDICARE, MEDICAID, SELFPAY ==
[2025-02-05 14:02] VITALS: BMI 21.9
--- NOTE | 2025-03-05 08:45 | PCM.CR.ITP ---
Exercise - Initial Assessment Visit Session #:: 5 Physician Prescribed Exercise Modalities: Treadmill, Schwinn Airdyne AD-7 and SciFit Stepper Nutrition - Initial Assessment Weight Mgt (Other Care) Height: 5 ft 8 in Weight:: 158 lb BMI: 24.0 Psychosocial - Initial Assess Referral to Behavioral Health PS - Interventions: Yes: Attend Stress Management Classes Exercise - 30-day Assessment Visit Date of Eval: 03/05/25 Session #:: 5 Physician Prescribed Exercise Modalities: Treadmill, Schwinn Airdyne AD-7 and SciFit Stepper Frequency: 3x/week for 12 weeks [36 sessions] Intensity: 60-80% of age predicted maximum heart rate reserve Duration: 30 - 45 minutes Current METSs:: 6.6 Target Heart Rate:: 101-116 Current RPE:: 11-12 Maximum Excercise HR:: 125 Resting Blood Pressure: 128/80 Maximum Exercise Blood Pressure: 158/88 EKG Type: Dual paced/ventricular paced occas PVC (Hx underlying A-flutter) Outcomes & Goals Goals:: Verbalizes understanding of THR, RPE & goal METS by session 6, Documents in home exercise log/reports 30 min aerobic 5 day/wk by DC, Demonstrates accurate pulse taking by DC and Other additional outcome/goals: see below Intervention & Plan Exercise Program Goals: Instruct on personal THR & RPE, Instruct on MET level & personal MET goal, Show patient to take own pulse /validate performance until accurate, Instruct on home exercise and Other additional plan/int Physical Activity Home Exercise Physical Activity - Home Exercise: Safe Exercise, Warm-up, Self-monitoring, Cool-Down, Home Exercise > 30 min Daily and Sitting Time <3 hours/daily Outcomes & Goals Outcomes/Goals: Demonstrates correct Warm-up/exercise Cool-Down (S3) if = 2.5 METs, Verbalizes symptoms of exercise intolerance by Session 3 (S3), Demonstrate safe equipment use (S3) & follows exercise prescrition (6) and Other: See below Intervention & Plan Plan/Intervention: Instruct warm-up & cool-down if exercising at > 2 METs, Instruct on symptoms of exercise intolerance & actions to take, Instruct & monitor on saf, Assess intial functional capacity & safety risk and Other See below 30-day Reassessments 30 day Reassessments:: Progressing Reassessment Notes & Comments:: Pt oriented to equipment. RPE explained to pt. Pt demonstrates understanding in his daily sessions. Exercise - 60-day Assessment Physician Prescribed Exercise Modalities: Treadmill, Schwinn Airdyne AD-7 and SciFit Stepper Exercise - 90-day Assessment Physician Prescribed Exercise Modalities: Treadmill, Schwinn Airdyne AD-7 and SciFit Stepper Exercise - Final/Discharge Physician Prescribed Exercise Modalities: Treadmill, Schwinn Airdyne AD-7 and SciFit Stepper Nutrition - 30-Day Assessment Program Goals Nutrition Program Goals Patient has diagnosis of Hyperlipidemia (ICD E78)?: Yes Visit Date of Eval: 03/05/25 Session #:: 5 (Nutrition survey score 4.) Cholesterol/Lipids (Other Core Measures) Determine presence & major risk factors that modify LDL goal: Cigarette smoking, Hypertension or hypertensive medication, Low HDL cholesterol <40 mg/dL*, Family history of premature CHD in Male < 55 years: female <65 yearsFa and Age men > 45 years; women >/= 55 years Outcomes/Goals: Pt IDs own risk factors & lifestyle modifications by Session 10, Verbalizes symptoms of angina & response by session 3., Pt independently manages and Other Additional Outcomes/Goals: Intervention/Plan: Advocate for lipid panel cholesterol medication if applicable, Instruct on personal lipid levels & lipid goals/NCEP guidelines, Instruct on cholesterol and Other additional plan/int Diabetes (Other Core Measures) Diabetes Type: Not Applicable Weight Mgt (Other Care) Height: 5 ft 8 in Weight:: 158 lb BMI: 24.0 Diagnosis Overweight/Obesity BMI> 30% ICD-10 E66: No Diagnosis High BMI/Morbid Obesity BMI> 35% ICD-10 Z68: No Outcomes/Goals: Pt sets, maintains & shows weight loss goal & trend during rehab and Other additional outcomes/goals Intervention/Plan: Instruct on ideal BMI & set weight loss goal w/patient, Assist pt to ID & incorporate diet changes for weight loss by S9, Refer to Structured Weight Loss program as appropriate, Encourage goal of using 250-300dcal per session for weight loss and Other additional plan/interventions Healthy Eating Habits Will attend diet classes:: Yes Outcomes/Goals:: Consume diet rich in vegs,fruits,whole grain/high fiber,fish,lean meat, Limit sat/trans fats,cholesterol & added salts & sugars and Other additional outcome/goals: Intervention/Plan:: Assess current eating habits and Other Additional plan/interventions 30-day Reassessments:: Progressing Reassessment Notes & Comments:: Pt is at a healthy weight. 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 Heart healthy low sodium diet encouraged. Education Gave educational materials for:: Signs & symptoms of hypoglycemia, Signs & symptoms of hyperglycemia, Relate diabetes to coronary artery disease and Healthy eating Nutrition - 60-Day Assessment Weight Mgt (Other Care) Height: 5 ft 8 in Weight:: 158 lb BMI: 24.0 Core - 30-Day Assessment Visit Date of Eval: 03/05/25 Session #:: 5 Medication Compliance Preventative Medication(s):: Aspirin, Beta chan and Eliquis H/O mental health issues: depression, anxiety, or addiction?: No Doesn’t believe in the benefits of treatment?: No Believes medications are unnecessary or harmful?: No Has a concern about medication side effects?: No Expresses concern over the cost of medications?: No Outcomes/Goals: Verbalizes medications,desired effect & common side effects @ DC, Pt self-reports following medication regimen, Keeps card in wallet w/medications listed by DC and Other additional outcome/goals: Interventions/plans: Instruct on medication effects & side effects, Review medication list w/patient every two weeks, Instruct importance of taking meds as ordered & assist problem solving and Other additional Tobacco Use Tobacco Use: Non-smoker Hypertension Hypertension Diagnosis:: Hypertension ICD-10 I10 Resting Blood Pressure:: 128/80 [place] [employer] Hypertension Guidelines Peak Exercise Blood Pressure:: 158/88 Outcomes/Goals: Able to verbalize/achieve optimal blood pressure <130/80, Incorporates diet changes & exercise for blood pressure control by DC and Other additional outcomes/goals Interventions/plan: Instruct on optimal blood pressure, hypertension & medications, Instruct on effects of sodium, alcohol, stress, exercise &hypertension and Other additional plan/interventions 30 day Reassessments:: Progressing Reassessment Notes & Comments:: Pt's BP's are within AHA normal limits on most days. Will continue to monitor and report to pt's physician if necessary. Tobacco Cessation Referral Smoking Cessation Referral:: No Individual Education/Counseling:: No Education Schedule Given:: Yes Psychosocial - 30-Day Assess VIsit Date of Eval: 03/05/25 Session #:: 5 History of previous Mental disease:: No Psychosocial Test Tool Used:: PHQ-9 Questionnaire phq-9 Severity See PHQ-9 Score: 0 Referral to Behavioral Health PS - Interventions: Yes: Attend Stress Management Classes Outcomes/Goals: See list Psychosocial Outcomes/Goals:: ID's personal stressors & 2 strategies to manage stress by discharge and Other Additional outcome/goals: Intervention/Plan: See List Interventions/Plan:: Assess stressors,coping strategies & signs of derpression on admission, Instruct/assist pt to develop coping & personal stress Mgt strategies, Refer to Behavioral Health if appropriate, Refer to Physician if appropriate, Instruct patient to recognize signs & symptoms of depression, Instruct patient to recog and Other additional plan/intervention 30-day Reassessments: 30 day Reassessments:: Progressing Reassessment Notes & Comments:: Pt denies any psychosocial issues at this time. Pt to attend stress management class. Will reassess every 30 days. Psychosocial - 60-Day Assess Referral to Behavioral Health PS - Interventions: Yes: Attend Stress Management Classes Outcomes/Goals: See list Psychosocial Outcomes/Goals:: ID's personal stressors & 2 strategies to manage stress by discharge and Other Additional outcome/goals: Psychosocial - 90-Day Assess Referral to Behavioral Health PS - Interventions: Yes: Attend Stress Management Classes Psychosocial - Final Assessmen Referral to Behavioral Health PS - Interventions: Yes: Attend Stress Management Classes Nutrition - 90-Day Assessment Weight Mgt (Other Care) Height: 5 ft 8 in Weight:: 158 lb BMI: 24.0 Nutrition - Final Assessment Weight Mgt (Other Care) Height: 5 ft 8 in Weight:: 158 lb BMI: 24.0
[2025-03-05 08:50] VITALS: BP 128/80
[2025-03-05 09:00] VITALS: BP 128/80; BMI 24.0
== END 2025-03-29 23:59 ==
LOC: CR 10:08
PROVIDERS: PCP Family Medicine; Referring Provider Family Medicine; Visit Provider Family Medicine
DX: Z95.4 Presence of other heart-valve replacement (principal); I50.9 Heart failure, unspecified
CPT/HCPCS: 93798